=== PATIENT | male | born 1995 | race Caucasian/White ===

== ENCOUNTER 2017-02-11 19:27 | Emergency (ER) | payer SELFPAY | END 2017-02-11 21:38 | disposition home or self-care (01) | LOC: FER 19:27 | DX: S16.1XXA Strain of muscle, fascia and tendon at neck level, initial encounter (principal); M54.5 Low back pain; M54.6 Pain in thoracic spine; V49.40XA Driver injured in collision with unspecified motor vehicles in traffic accident, initial encounter; Y92.410 Unspecified street and highway as the place of occurrence of the external cause; Z87.81 Personal history of (healed) traumatic fracture | CPT/HCPCS: 72125; 72128; 72131 ==

== ENCOUNTER 2017-04-05 15:33 | Emergency (ER) | payer OTHER ==
[2017-04-05 16:51] LABS: BASOPHIL 0.3 % (0-2); EOSINOPHIL 3.8 % (0-5); HCT 41.3 % (42.0-52.0); LYMPHOCYTE 29.6 % (15-48); MCH 32.4 pg (25.0-31.0); MCHC 36.3 g/dL (32.0-36.0); MCV 89.2 fL (78.0-100.0); MONOCYTE 8.5 % (0-12); MPV 10.2 fL (6.0-9.5); NEUTROPHIL 57.8 % (41-80); PLT 227 K/uL (150-400); RBC 4.63 M/uL (4.70-6.00); RDW 12.7 % (11.5-14.0); WBC 10.9 K/uL (4.0-10.5)
[2017-04-05 17:23] LABS: ALBUMIN 4.3 g/dL (3.5-5.0); BILIRUBIN - TOTAL 0.3 mg/dL (0.1-1.0); CREATININE 0.9 mg/dL (0.7-1.2); GLOBULIN (CALCULATION) 2.5 g/dL (2.2-4.2); POTASSIUM 4.3 mmol/L (3.5-5.1); TOTAL PROTEIN 6.8 g/dL (6.4-8.3); URIC ACID 8.6 mg/dL (3.4-7.0)
== END 2017-04-05 18:54 | disposition home or self-care (01) ==
LOC: FER 15:33
PROVIDERS: Nurse Practitioner Family
DX: M10.072 Idiopathic gout, left ankle and foot (principal); D16.21 Benign neoplasm of long bones of right lower limb; F17.210 Nicotine dependence, cigarettes, uncomplicated
CPT/HCPCS: 36415; 73552; 73564; 73630; 80053; 84550; 85025; 99283